=== PATIENT | female | born 1965 | race Caucasian/White ===

== ENCOUNTER 2016-06-06 07:27 | Day surgery (SDC) | payer MEDICAID ==
[2016-06-06 07:49] VITALS: BMI 17.5
[2016-06-06 08:27] VITALS: O2SAT 100
[2016-06-06] MEDS ORDERED: Propofol 10 mg/ml Inj (20 ML) ONE (09:51)
[2016-06-06] MEDS ORDERED: Sodium Chloride 0.9% 1,000 ML IV SCH (10:30)
[2016-06-06 10:31] VITALS: TEMP 98.4
[2016-06-06 11:03] VITALS: BP 108/66; PULSE 64; RESP 13
== END 2016-06-06 11:20 | disposition home or self-care (01) ==
LOC: C.ENDO 07:27
PROVIDERS: ATTEND Internal Medicine Gastroenterology
DX: K21.0 Gastro-esophageal reflux disease with esophagitis (principal); K29.70 Gastritis, unspecified, without bleeding
CPT/HCPCS: 43239; 88305; J2704; J3010; J7040

== ENCOUNTER 2018-04-22 14:25 | Emergency (ER) | payer MEDICAID ==
[2018-04-22 14:25] VITALS: BMI 17.5
[2018-04-22] MEDS ORDERED: Sodium Chloride 0.9% 1,000 ML IV ONE (15:58)
[2018-04-22 16:07] LABS: URINE BILIRUBIN NEGATIVE (NEGATIVE); URINE BLOOD NEGATIVE (NEGATIVE); URINE CLARITY Clear (Clear); URINE COLOR Straw (YELLOW); URINE GLUCOSE (UA) NORMAL (Normal); URINE LEUKOCYTE ESTERASE NEG Leu/uL (Negative); URINE PROTEIN NEGATIVE (NEGATIVE); URINE UROBILINOGEN NORMAL mg/dL (0.2-1.0)
[2018-04-22 16:22] LABS: BASO # 0.1 K/uL (0.0-0.2); BASO % 1.2 % (0.0-2.0); EOS # 0.1 K/uL (0.0-0.7); EOS % 1.7 % (0.0-4.0); HEMOGLOBIN 12.9 g/dL (11.0-16.0); LYMPH % 44.8 % (20.0-40.0); MEAN CELL VOLUME 92.2 fL (81.0-99.0); MEAN CORPUSCULAR HEMOGLOBIN 30.5 pg (27.0-31.0); MEAN CORPUSCULAR HGB CONC 33.1 g/dL (33.0-37.0); MEAN PLATELET VOLUME 8.5 fL (7.2-11.7); MONO # 0.8 K/uL (0.0-0.8); MONO % 17.9 % (0.0-10.0); NEUT # 1.5 K/uL (1.8-7.0); NEUT % 34.4 % (50.0-75.0); RBC 4.23 Mil/uL (3.80-5.20); RED CELL DISTRIBUTION WIDTH 12.4 % (11.5-14.5); WHITE BLOOD COUNT 4.4 K/uL (4.8-10.8)
[2018-04-22 16:41] LABS: ALB/GLOB RATIO 1.7 (1.0-2.1); ALBUMIN 4.7 g/dL (3.5-5.0); ALT/SGPT 127 U/L (9-52); AST/SGOT 115 U/L (14-36); BLOOD UREA NITROGEN 7 mg/dL (7-17); CALCIUM 10.6 mg/dl (8.6-10.4); GFR NON-AFRICAN AMERICAN > 60; LIPASE 85 U/L (23-300)
--- NOTE | 2018-04-22 17:48 | C.PDOC ---
History Of Present Illness 52 y/o female presents to the ER complaining of right sided flank pain and dysuria which has been present for the past 5 days. Patient states that she just arrived from [place] yesterday; reports that she was admitted in [place] for "kidney infection" and she was discharged on Macrobid and Augmentin. She notes that she has not taken the medications. Patient admits to some nausea and mild watery diarrhea. Patient denies having fever, chills, vomiting, hematuria. Time Seen by Provider: 04/22/18 15:19 Chief Complaint (Nursing): Abdominal Pain History Per: Patient History/Exam Limitations: no limitations Onset/Duration Of Symptoms: Days Current Symptoms Are (Timing): Still Present Severity: Moderate Past Medical History Reviewed: Historical Data, Nursing Documentation, Vital Signs Vital Signs: Last Vital Signs Temp 97.8 F 04/22/18 14:36 Pulse 62 04/22/18 14:36 Resp 18 04/22/18 14:36 BP 117/75 04/22/18 14:36 Pulse Ox 99 04/22/18 14:36 - Medical History PMH: Anxiety, Hypercholesterolemia, Hypothyroidism, Kidney Stones, Chronic Kidney Disease Surgical History: Appendectomy, Endoscopy Family History: States: No Known Family Hx - Social History Hx Tobacco Use: No Hx Alcohol Use: No Hx Substance Use: No - Immunization History Hx Tetanus Toxoid Vaccination: No Hx Influenza Vaccination: Yes Hx Pneumococcal Vaccination: Yes Review Of Systems Constitutional: Negative for: Fever, Chills Gastrointestinal: Positive for: Nausea, Diarrhea, Other (flank pain). Negative for: Vomiting Genitourinary: Negative for: Dysuria, Hematuria Physical Exam - Physical Exam Appears: Well, Non-toxic, Other (mild discomfort) Skin: Normal Color, Warm, Dry Head: Atraumatic, Normacephalic Eye(s): bilateral: Normal Inspection Oral Mucosa: Moist Neck: Supple Cardiovascular: Rhythm Regular Respiratory: Normal Breath Sounds, No Rales, No Rhonchi, No Wheezing Gastrointestinal/Abdominal: Bowel Sounds, Soft, Tenderness (mild RUQ tenderness), No Guarding, No Rebound, Other (negative McBurney's) Back: CVA Tenderness (right sided CVA tenderness) Neurological/Psych: Oriented x3 ED Course And Treatment - Laboratory Results Result Diagrams: 04/22/18 16:17 04/22/18 16:17 Lab Results: Total Bilirubin 0.4 mg/dL (0.2-1.3) 04/22/18 16:17 AST 115 U/L (14-36) H 04/22/18 16:17 ALT 127 U/L (9-52) H D 04/22/18 16:17 Alkaline Phosphatase 75 U/L (38-126) 04/22/18 16:17 Total Protein 7.5 g/dL (6.3-8.3) 04/22/18 16:17 Albumin 4.7 g/dL (3.5-5.0) 04/22/18 16:17 Globulin 2.8 gm/dL (2.2-3.9) 04/22/18 16:17 Albumin/Globulin Ratio 1.7 (1.0-2.1) 04/22/18 16:17 Lipase 85 U/L (23-300) 04/22/18 16:17 Urine Color Straw (YELLOW) 04/22/18 15:54 Urine Clarity Clear (Clear) 04/22/18 15:54 Urine pH 7.0 (5.0-8.0) 04/22/18 15:54 Ur Specific [place] 1.001 (1.003-1.030) L 04/22/18 15:54 Urine Protein Negative mg/dL (NEGATIVE) 04/22/18 15:54 Urine Glucose (UA) Normal mg/dL (Normal) 04/22/18 15:54 Urine Ketones Negative mg/dL (NEGATIVE) 04/22/18 15:54 Urine Blood Negative (NEGATIVE) 04/22/18 15:54 Urine Nitrate Negative (NEGATIVE) 04/22/18 15:54 Urine Bilirubin Negative (NEGATIVE) 04/22/18 15:54 Urine Urobilinogen Normal mg/dL (0.2-1.0) 04/22/18 15:54 Ur Leukocyte Esterase Neg [place]/uL (Negative) 04/22/18 15:54 Urine WBC (Auto) < 1 /hpf (0-5) 04/22/18 15:54 O2 Sat by Pulse Oximetry: 99 (RA) Pulse Ox Interpretation: Normal Progress Note: Blood work, UA, CT scan abd/pelvis ordered. Patient given IV NS bolus, IV toradol. Disposition - Disposition Disposition Time: 19:00 Condition: STABLE Forms: [facility] (Moroccan) - Clinical Impression Clinical Impression: Right flank pain, RUQ abdominal pain - Scribe Statement The provider has reviewed the documentation as recorded by the Andresibe Andrea Dotson Provider Attestation: All medical record entries made by the Scribe were at my direction and personally dictated by me. I have reviewed the chart and agree that the record accurately reflects my personal performance of the history, physical exam, medical decision making, and the department course for this patient. I have also personally directed, reviewed, and agree with the discharge instructions and disposition. Physician Patient Turnover Patient Signed Over To: Lyle Salmon Handoff Comments: pending CT scan
[2018-04-22 22:02] VITALS: BP 121/70; PULSE 78; RESP 20; TEMP 97.3; O2SAT 98
--- NOTE | 2018-04-23 08:52 | CT ---
CT abdomen and pelvis HISTORY: Right flank pain. Comparison: None available. TECHNIQUE: Multiple contiguous axial images were performed through the abdomen and pelvis without the use of intravenous contrast. Findings: Moderate pericardial effusion. Mild atelectasis within the medial aspect of the right middle lobe. Bibasilar atelectasis. Liver is preserved. 6 millimeter calculus at the neck of the gallbladder. Spleen is preserved. Adrenal glands are preserved. Pancreas is preserved. Upper abdominal bowel is preserved. Right kidney: No calculi or hydronephrosis. Left Kidney: No calculi or hydronephrosis. Distended urinary bladder. Fecal retention in the colon. Appendix not well visualized. Shotty lymph nodes noted within the right lower quadrant. Few shotty para-aortic and inguinal lymph nodes. Few shotty mesenteric lymph nodes. Few inferior endplate concavities in the lower lumbar spine. Small fat containing umbilical hernia. Impression: 1. Moderate pericardial effusion. 2. 6 millimeter calculus at the neck of the gallbladder. Clinical correlation. Correlation with right upper quadrant abdominal ultrasound may be helpful if clinically indicated. 3. Appendix not well visualized on this noncontrast study. If there is concern for acute appendicitis, consider correlation with a contrast-enhanced scan. 4. Fecal retention in the colon. 5. Few shotty lymph nodes in the right lower quadrant of the abdomen which may represent a mesenteric adenitis. Clinical correlation. Additional findings as above. A preliminary report was generated at 8:50 p.m. on 04/22/[address] Deejay Fernando from [employer].
== END 2018-04-22 22:03 | disposition home or self-care (01) ==
LOC: C.ER 14:25
DX: R10.11 Right upper quadrant pain (principal)
CPT/HCPCS: 74176; 80053; 81001; 83690; 85025; 87086; 96361; 96374; 99285; J1885; J7030

== ENCOUNTER 2018-05-05 10:25 | Outpatient (CLI) | payer MEDICAID | END 2018-05-05 10:26 | disposition home or self-care (01) | LOC: C.PAT 10:25 | DX: K80.20 Calculus of gallbladder without cholecystitis without obstruction (principal) ==

== ENCOUNTER 2018-05-11 11:07 | Day surgery (SDC) | payer MEDICAID ==
[2018-05-05 10:34] VITALS: BMI 17.4
[2018-05-11] MEDS ORDERED: Bupivacaine 0.25% 20 ML INJ IJ ONE (15:46)
[2018-05-11] MEDS ORDERED: Lidocaine/Epinephrine 1% 1:100000 10 ML IJ ONE (15:46)
[2018-05-11] MEDS ORDERED: Sodium Chloride 0.9% 20 ML IV ONE (15:53)
[2018-05-11] MEDS ORDERED: Dexamethasone 4 mg/1 ml ONE (15:53)
[2018-05-11] MEDS ORDERED: ceFAZolin 1 gm in NS 2 GM/200 ML BAG IVPB ONE (15:53)
[2018-05-11] MEDS ORDERED: Bupivacaine Liposomal Inj 20 ml INFIL ONE (16:00)
[2018-05-11] MEDS ORDERED: Propofol 10 mg/ml Inj (20 ML) ONE (16:13)
[2018-05-11] MEDS ORDERED: Lidocaine Hydrochloride 5 ML INJ ONE (16:14)
[2018-05-11] MEDS ORDERED: Rocuronium 10 mg/ml (5 ml) ONE (16:14)
[2018-05-11] MEDS ORDERED: Phenylephrine 10 mg/ml Inj ONE (17:06)
[2018-05-11] MEDS ORDERED: Neostigmine 1:1000 (1 mg/ml) Inj ONE (17:07)
[2018-05-11] MEDS ORDERED: oxyCODONE 5 mg Immediate Release Tab PO ONE (17:32)
--- NOTE | 2018-05-11 17:34 | PCM.SURG1 ---
Surgeon's Initial Post Op Note - Surgeon's Notes Surgeon: Dr. Cano [place] Pumper: Merchant Yahir PGY2 Type of Anesthesia: General Endo Pre-Operative Diagnosis: Symptomatic Cholelithiasis Operative Findings: see operative note Post-Operative Diagnosis: as above Operation Performed: Robotic Cholecystectomy Specimen/Specimens Removed: 1. Gallbladder Estimated Blood Loss: EBL {In ML}: 5 Drains Used: No Drains Post-Op Condition: Good Date of Surgery/Procedure: 05/11/18 Time of Surgery/Procedure: 17:34
[2018-05-11] MEDS ORDERED: Lactated Ringer's 1,000 ML IV ONE (17:35)
[2018-05-11 19:33] VITALS: BP 118/58; PULSE 68; RESP 10; TEMP 97.9; O2SAT 99
--- NOTE | 2018-05-12 05:01 | OP ---
PROCEDURE DATE: 05/11/2018 PREOPERATIVE DIAGNOSES: 1. Chronic cholecystitis and cholelithiasis. 2. Possible postinflammatory adhesion. POSTOPERATIVE DIAGNOSES: 1. Chronic cholecystitis and cholelithiasis. 2. Extensive chronic postinflammatory adhesion. PROCEDURE DONE: 1. Robotic cholecystectomy. 2. Robotic enterolysis and lysis of adhesions. 3. Robotic TAP block placement. SURGEON: Cassius Cano MD CUSTOMER SERVICE REPRESENTATIVE TELLER: J LUIS Leos and Robert Duron, PGY-2 resident. TYPE OF ANESTHESIA: General endotracheal tube anesthesia. ESTIMATED BLOOD LOSS: Around 10 mL DRAINS: None. PATHOLOGY: Gallbladder with gallstone was sent for pathology. COMPLICATIONS: None. INTRAOPERATIVE FINDINGS: The patient had changes of chronic cholecystolithiasis and the patient also had extensive peritoneal adhesions of omentum to the gallbladder, duodenum to the gallbladder and extensive adhesion of the duodenum to the gallbladder was lysed and an enterolysis was done in order to expose the Calot's triangle. DESCRIPTION OF PROCEDURE: On intraoperative steps, this is a 62-year-old female who was diagnosed with chronic cholecystitis and cholelithiasis, and the patient was consented for the robotic cholecystectomy possible open, and brought to the OR, placed supine on the operating table. After induction of the anesthesia, the abdomen was prepped and draped in usual sterile fashion. A supraumbilical transverse incision was made using open technique. Peritoneal cavity was entered, pneumo was created. Another 3-8 mm port was placed in the upper abdomen. Robot was brought in. Camera arm as well as arm 1 and arm 2 were docked. Gallbladder was retracted cranially. The patient was found to have extensive omental, colonic and duodenal adhesions to the gallbladder and lysis of adhesion was done. The duodenum was firmly adhesed, and careful dissection was done in order to dissect the duodenum off the gallbladder infundibulum as well as the Calot's triangle, and cystic duct and cystic artery were identified. Intraoperative Firefly was used and cystic duct and cystic artery were clipped at three places and cut in between two clips nearby gallbladder and gallbladder was dissected free from the gallbladder fossa, taken in EndoCatch bag, taken out through the umbilical port site and sent off the table for the pathology. There was proper hemostasis in each and every part of the procedure. Now robotic bilateral TAP block was given. The 30:30 mL with Exparel with Decadron was injected in the right and left transverse abdominis muscles plane area, and after proper TAP block, all instruments were taken off, robot was undocked. All the ports were taken out under vision, pneumo was deflated. Umbilical port site was closed in 2 layers. The fascia with 0 Vicryl interrupted suture and skin with 4-0 Monocryl, and dry sterile dressing was applied. The patient tolerated the procedure well. Count of instrument and gauze was correct. There were no apparent complications. The patient was extubated in OR and sent to the postanesthesia care unit in stable condition. Cassius Cano MD
== END 2018-05-11 20:00 | disposition home or self-care (01) ==
LOC: C.SDS 11:07
PROVIDERS: ATTEND Surgery Surgical Critical Care
DX: K80.10 Calculus of gallbladder with chronic cholecystitis without obstruction (principal); K66.0 Peritoneal adhesions (postprocedural) (postinfection)
CPT/HCPCS: 47562; 64486; 88304; J0690; J1100; J2270; J2405; J2704; J2710; J3010; J7030; J7120

== ENCOUNTER → 2018-07-14 | Outpatient (CLI) | payer MEDICAID | LOC: C.USIC 10:22 ==